=== PATIENT | male | born 1965 | race Caucasian/White ===

== ENCOUNTER 2025-06-05 09:16 | Outpatient (CLI) | payer BC, SELFPAY ==
[2025-06-05 12:04] LABS: ALT 40 U/L (10-49); AST 35 U/L (<34); Albumin 3.6 g/dL (3.4-5.0); Alkaline Phosphatase 76 U/L (46-116); Anion Gap 7.7 mmol/L (3-11); BUN 27 mg/dL (9-23); Bilirubin, Total 0.50 mg/dL (0.2-1.2); CO2 27.3 mmol/L (20.0-31.0); Calcium 8.3 mg/dL (8.3-10.6); Chloride 104 mmol/L (98-107); Glucose 123 mg/dL (74-106); Potassium 3.3 mmol/L (3.5-5.1); Sodium 139 mmol/L (136-145); Total Protein 8.3 g/dL (5.7-8.2)
[2025-06-05 12:30] LABS: Abs Immature Grans 0.10 10^3/uL (0.0-0.06); HCT 33.9 % (40.0-50.0); HGB 10.7 g/dL (13.5-17.5); Immature Grans % 0.9 %; MCH 27.9 pg (27.0-33.0); MCHC 31.6 % (32.0-36.0); MCV 88 fL (80-95); MPV 12.7 fL (8.0-11.0); RBC 3.84 10^6/uL (4.36-5.78); RDW 16.0 % (11.8-14.1); RDW-SD 52.0 fL; WBC 10.74 10^3/uL (4.4-10.8)
[2025-06-05 12:58] LABS: Anisocytosis 1+; Hypochromasia 1+; Microcytosis 1+; Platelet Count 59 10^3/uL (130-400)
== END 2025-06-05 09:17 | disposition home or self-care (01) ==
LOC: LBO 09:16
PROVIDERS: PCP Nurse Practitioner Family; Visit Provider Internal Medicine Hematology & Oncology
DX: D69.3 Immune thrombocytopenic purpura (principal)
CPT/HCPCS: 36415; 80053; 85025

== ENCOUNTER 2025-06-07 03:37 | Outpatient (CLI) | payer BC, SELFPAY ==
[2025-06-07 12:56] LABS: Abs Immature Grans 0.12 10^3/uL (0.0-0.06); HCT 33.6 % (40.0-50.0); HGB 10.6 g/dL (13.5-17.5); Immature Grans % 1.2 %; MCH 27.8 pg (27.0-33.0); MCHC 31.5 % (32.0-36.0); MCV 88 fL (80-95); MPV 12.0 fL (8.0-11.0); RBC 3.81 10^6/uL (4.36-5.78); RDW 15.4 % (11.8-14.1); RDW-SD 50.1 fL; WBC 9.91 10^3/uL (4.4-10.8)
[2025-06-07 12:57] LABS: Platelet Count 45 10^3/uL (130-400)
[2025-06-07 13:20] LABS: ALT 44 U/L (10-49); AST 39 U/L (<34); Albumin 3.7 g/dL (3.4-5.0); Alkaline Phosphatase 72 U/L (46-116); Anion Gap 7.7 mmol/L (3-11); BUN 22 mg/dL (9-23); Bilirubin, Total 0.40 mg/dL (0.2-1.2); CO2 28.3 mmol/L (20.0-31.0); Calcium 8.5 mg/dL (8.3-10.6); Chloride 101 mmol/L (98-107); Glucose 153 mg/dL (74-106); Potassium 3.7 mmol/L (3.5-5.1); Sodium 137 mmol/L (136-145); Total Protein 8.2 g/dL (5.7-8.2)
== END 2025-06-07 03:38 | disposition home or self-care (01) ==
LOC: LBO 03:37
PROVIDERS: PCP Nurse Practitioner Family; Visit Provider Internal Medicine Hematology & Oncology
DX: D69.3 Immune thrombocytopenic purpura (principal)
CPT/HCPCS: 36415; 80053; 85025

== ENCOUNTER 2025-06-14 02:10 | Outpatient (CLI) | payer BC, SELFPAY ==
[2025-06-14 13:50] LABS: Abs Immature Grans 0.09 10^3/uL (0.0-0.06); HCT 38.2 % (40.0-50.0); HGB 12.0 g/dL (13.5-17.5); Immature Grans % 1.0 %; MCH 28.0 pg (27.0-33.0); MCHC 31.4 % (32.0-36.0); MCV 89 fL (80-95); MPV 11.5 fL (8.0-11.0); RBC 4.29 10^6/uL (4.36-5.78); RDW 15.1 % (11.8-14.1); RDW-SD 49.4 fL; WBC 9.38 10^3/uL (4.4-10.8)
[2025-06-14 14:02] LABS: ALT 43 U/L (10-49); AST 27 U/L (<34); Albumin 3.9 g/dL (3.2-5.0); Alkaline Phosphatase 68 U/L (46-116); Anion Gap 3.8 mmol/L (3-11); BUN 21 mg/dL (9-23); Bilirubin, Total 0.50 mg/dL (0.2-1.2); CO2 28.2 mmol/L (20.0-31.0); Calcium 8.6 mg/dL (8.3-10.6); Chloride 105 mmol/L (98-107); Glucose 162 mg/dL (74-106); Potassium 3.5 mmol/L (3.5-5.1); Sodium 137 mmol/L (136-145); Total Protein 7.5 g/dL (5.7-8.2)
[2025-06-14 14:03] LABS: Platelet Count 78 10^3/uL (130-400)
[2025-06-14 14:04] LABS: RBC Morphology Normal
== END 2025-06-14 02:11 | disposition home or self-care (01) ==
LOC: LBO 02:11
PROVIDERS: PCP Nurse Practitioner Family; Visit Provider Internal Medicine Hematology & Oncology
DX: D69.3 Immune thrombocytopenic purpura (principal)
CPT/HCPCS: 36415; 80053; 85025

== ENCOUNTER 2025-06-16 02:22 | Outpatient (CLI) | payer BC, SELFPAY ==
[2025-06-16 08:30] LABS: Abs Immature Grans 0.12 10^3/uL (0.0-0.06); HCT 38.8 % (40.0-50.0); HGB 12.2 g/dL (13.5-17.5); Immature Grans % 1.1 %; MCH 27.9 pg (27.0-33.0); MCHC 31.4 % (32.0-36.0); MCV 89 fL (80-95); MPV 9.4 fL (8.0-11.0); RBC 4.38 10^6/uL (4.36-5.78); RDW 14.8 % (11.8-14.1); RDW-SD 47.8 fL; WBC 11.00 10^3/uL (4.4-10.8)
[2025-06-16 08:36] LABS: Platelet Count 176 10^3/uL (130-400)
[2025-06-16 08:51] LABS: ALT 42 U/L (10-49); AST 24 U/L (<34); Albumin 3.9 g/dL (3.2-5.0); Alkaline Phosphatase 68 U/L (46-116); Anion Gap 9 mmol/L (3-11); BUN 18 mg/dL (9-23); Bilirubin, Total 0.30 mg/dL (0.2-1.2); CO2 27.0 mmol/L (20.0-31.0); Calcium 8.2 mg/dL (8.3-10.6); Chloride 106 mmol/L (98-107); Glucose 98 mg/dL (74-106); Potassium 3.5 mmol/L (3.5-5.1); Sodium 142 mmol/L (136-145); Total Protein 7.5 g/dL (5.7-8.2)
== END 2025-06-16 02:23 | disposition home or self-care (01) ==
LOC: LBO 02:22
PROVIDERS: PCP Nurse Practitioner Family; Visit Provider Internal Medicine Hematology & Oncology
DX: D69.3 Immune thrombocytopenic purpura (principal)
CPT/HCPCS: 36415; 80053; 85025

== ENCOUNTER 2025-06-23 11:08 | Outpatient (CLI) | payer BC, SELFPAY ==
[2025-06-23 10:56] LABS: Abs Immature Grans 0.25 10^3/uL (0.0-0.06); HCT 39.9 % (40.0-50.0); HGB 12.4 g/dL (13.5-17.5); Immature Grans % 2.0 %; MCH 27.9 pg (27.0-33.0); MCHC 31.1 % (32.0-36.0); MCV 90 fL (80-95); MPV 9.2 fL (8.0-11.0); Platelet Count 249 10^3/uL (130-400); RBC 4.44 10^6/uL (4.36-5.78); RDW 14.6 % (11.8-14.1); RDW-SD 47.7 fL; WBC 12.22 10^3/uL (4.4-10.8)
[2025-06-23 11:12] LABS: ALT 34 U/L (10-49); AST 19 U/L (<34); Albumin 3.9 g/dL (3.2-5.0); Alkaline Phosphatase 63 U/L (46-116); Anion Gap 6 mmol/L (3-11); BUN 18 mg/dL (9-23); Bilirubin, Total 0.30 mg/dL (0.2-1.2); CO2 30.0 mmol/L (20.0-31.0); Calcium 8.3 mg/dL (8.3-10.6); Chloride 105 mmol/L (98-107); Glucose 118 mg/dL (74-106); Potassium 3.8 mmol/L (3.5-5.1); Sodium 141 mmol/L (136-145); Total Protein 7.1 g/dL (5.7-8.2)
== END 2025-06-23 11:09 | disposition home or self-care (01) ==
LOC: LBO 11:09
PROVIDERS: PCP Nurse Practitioner Family; Visit Provider Internal Medicine Hematology & Oncology
DX: D69.3 Immune thrombocytopenic purpura (principal)
CPT/HCPCS: 36415; 80053; 85025

== ENCOUNTER 2025-06-30 10:32 | Outpatient (CLI) | payer BC, SELFPAY ==
[2025-06-30 10:37] LABS: Abs Immature Grans 0.15 10^3/uL (0.0-0.06); HCT 37.5 % (40.0-50.0); HGB 11.9 g/dL (13.5-17.5); Immature Grans % 1.4 %; MCH 28.1 pg (27.0-33.0); MCHC 31.7 % (32.0-36.0); MCV 88 fL (80-95); MPV 9.3 fL (8.0-11.0); Platelet Count 374 10^3/uL (130-400); RBC 4.24 10^6/uL (4.36-5.78); RDW 14.5 % (11.8-14.1); RDW-SD 46.5 fL; WBC 10.73 10^3/uL (4.4-10.8)
[2025-06-30 10:54] LABS: ALT 40 U/L (10-49); AST 30 U/L (<34); Albumin 3.9 g/dL (3.2-5.0); Alkaline Phosphatase 70 U/L (46-116); Anion Gap 10.1 mmol/L (3-11); BUN 18 mg/dL (9-23); Bilirubin, Total 0.4 mg/dL (0.2-1.2); CO2 26.9 mmol/L (20.0-31.0); Calcium 8.2 mg/dL (8.3-10.6); Chloride 105 mmol/L (98-107); Glucose 150 mg/dL (74-106); Potassium 3.2 mmol/L (3.5-5.1); Sodium 142 mmol/L (136-145); Total Protein 6.7 g/dL (5.7-8.2)
== END 2025-06-30 10:33 | disposition home or self-care (01) ==
LOC: LBO 10:32
PROVIDERS: PCP Nurse Practitioner Family; Visit Provider Internal Medicine Hematology & Oncology
DX: D69.3 Immune thrombocytopenic purpura (principal)
CPT/HCPCS: 36415; 80053; 85025

== ENCOUNTER 2025-07-05 00:41 | Outpatient (CLI) | payer BC, OTHER, SELFPAY ==
[2025-07-05 08:52] LABS: Abs Immature Grans 0.16 10^3/uL (0.0-0.06); HCT 39.2 % (40.0-50.0); HGB 12.3 g/dL (13.5-17.5); Immature Grans % 1.4 %; MCH 28.3 pg (27.0-33.0); MCHC 31.4 % (32.0-36.0); MCV 90 fL (80-95); MPV 8.5 fL (8.0-11.0); Platelet Count 321 10^3/uL (130-400); RBC 4.35 10^6/uL (4.36-5.78); RDW 14.3 % (11.8-14.1); RDW-SD 47.3 fL; WBC 11.41 10^3/uL (4.4-10.8)
[2025-07-05 09:24] LABS: ALT 39 U/L (10-49); AST 22 U/L (<34); Albumin 4.0 g/dL (3.2-5.0); Alkaline Phosphatase 66 U/L (46-116); Anion Gap 8 mmol/L (3-11); BUN 19 mg/dL (9-23); Bilirubin, Total 0.3 mg/dL (0.2-1.2); CO2 30.0 mmol/L (20.0-31.0); Calcium 9.1 mg/dL (8.3-10.6); Chloride 104 mmol/L (98-107); Glucose 135 mg/dL (74-106); Potassium 4.4 mmol/L (3.5-5.1); Sodium 142 mmol/L (136-145); Total Protein 6.8 g/dL (5.7-8.2)
== END 2025-07-05 00:42 | disposition home or self-care (01) ==
PROVIDERS: PCP Nurse Practitioner Family; Visit Provider Internal Medicine Hematology & Oncology
DX: D69.3 Immune thrombocytopenic purpura (principal)
CPT/HCPCS: 36415; 80053; 85025